=== PATIENT | male | born 1990 | race Asian ===

== ENCOUNTER 2016-09-18 02:25 | Emergency (ER) | payer OTHER ==
[2016-09-18] MEDS ORDERED: NS 0.9% 1000 ML* 1,000 ML IV ONE (03:32)
[2016-09-18] MEDS ORDERED: Morphine INJ* 4 MG/ML 1 ML SYRINGE IV ONE (03:34)
[2016-09-18] MEDS ORDERED: Ondansetron INJ* 2 MG/ML VIAL IV ONE (03:35)
[2016-09-18 04:18] LABS: Hematocrit 45 % (42-52); Hemoglobin 15.3 g/dl (14.0-18.0); Mean Corpuscular HGB Conc 34 g/dl (31-36); Mean Corpuscular Hemoglobin 29 pg (27-31); Mean Corpuscular Volume 86 fL (80-94); Mean Platelet Volume 8 um3 (7.4-10.4); Red Cell Distribution Width 13 % (10.5-15)
[2016-09-18 04:19] LABS: Add Diff/Slide Review? Slide Review Added; Comments Flag Yes
[2016-09-18 04:20] LABS: ALT 22 U/L (7-52); Alkaline Phosphatase 58 U/L (34-104); BUN/Creatinine Ratio 9.4 (8-20); Blood Urea Nitrogen 8 mg/dL (6-24); CO2 Carbon Dioxide 22 mmol/L (22-32); Chloride 96 mmol/L (101-111); EGFR African American 139.1 (>60); EGFR Non-African American 108.1 (>60); Globulin 3.7 g/dL (2-4); Glucose 108 mg/dL (70-100); Sodium 128 mmol/L (133-145); Total Protein 7.7 g/dL (6.4-8.9)
[2016-09-18 04:25] LABS: Anion Gap 10 mmol/L (2-11)
[2016-09-18] MEDS ORDERED: Lidocaine 2% EPI 1:200000 MPF* 20 ML VIAL INJ ONE (06:04)
[2016-09-18] MEDS ORDERED: Lidocaine 2% W/EPI 1:100,000* 20 ML MDV ONE (07:00)
--- NOTE | 2016-09-18 07:49 | ED ---
Issac Wray Alok, scribed for Gilberto Bonilla MD on 09/18/16 at 0359 . GI/ HPI - HPI Summary HPI Summary: 26M presents to the ED with rectal pain. Pt states that what began with rectal pruritus 6 days ago progressed into rectal pain 4 days ago. Pt states that his rectal pain is worse with wiping after BM though is not aggravated by BM themselves. Pt rectum shows erythema, swelling and redness with hard tissue. Pt states his rectal pain is worse on the right side more towards the outside of his rectum rather than inside. Pt also notes subjective fever and chills. Pt denies rectal bleeding or abd pain. Pt denies sore throat or cough. Pt denies dysuria. PMHx includes hemorrhoids 2 years ago treated with preparation H cream and no surgery. Additional PMHx includes HIV positive for which pt takes medications for as well as HTN for which the patient used to take amlodipine and has since stopped takeing. - History of Current Complaint Chief Complaint: EDRectalPain Time Seen by Provider: 09/18/16 03:02 Stated Complaint: ABD PAIN Hx Obtained From: Patient Onset/Duration: Started Days Ago, Atraumatic, Still Present, Worse Since - 4 days ago Timing: Constant, Lasting Days Severity: Moderate Current Severity: Moderate Pain Intensity: 9 Location of Pain: Rectal Associated Signs and Symptoms: Positive: Fever, Chills. Negative: Blood w/Stool , Dysuria, Cough Alleviating Factor(s): Nothing - Allergy/Home Medications Allergies/Adverse Reactions: Allergies Allergy/AdvReac Type Severity Reaction Status Date / Time No Known Allergies Allergy Verified 09/18/16 02:34 PMH/Surg Hx/FS Hx/Imm Hx Endocrine/Hematology History: Reports: Other Endocrine/Hematological Disorders - HIV positive GI History: Reports: Other GI Disorders - h/o hemorrhoids Infectious Disease History: Yes Infectious Disease History: Denies: Traveled Outside the [place] in Last 30 Days - Family History Known Family History: Positive: Hypertension - Social History Occupation: Student Alcohol Use: None Substance Use Type: Reports: None Smoking Status (MU): Never Smoked Tobacco Review of Systems Positive: Fever, Chills Negative: Sore Throat Negative: Cough Positive: Other - rectal pain. Negative: Abdominal Pain Negative: dysuria All Other Systems Reviewed And Are Negative: Yes Physical Exam - Summary Physical Exam Summary: The patient is well-nourished in no acute distress and in no acute pain. The skin is warm to touch and dry and skin color reflects adequate perfusion. HEENT: The head is normocephalic and atraumatic. The pupils are equal and reactive. The conjunctivae are clear and without drainage. Nares are patent and without drainage. Mouth reveals moist mucous membranes and the throat is without erythema and exudate. The external ears are intact. The ear canals are patent and without drainage. The tympanic membranes are intact. Neck is supple with full range of motion and non-tender. There are no carotid bruits. There is no neck vein distension. Respiratory: Chest is non-tender. Lungs are clear to auscultation and breath sounds are symmetrical and equal. Cardiovascular: Heart is regular rate and rhythm. There is no murmur or rub auscultated. There is no peripheral edema and pulses are symmetrical and equal. Abdomen: The abdomen is soft and non-tender. There are normal bowel sounds heard in all four quadrants and there is no organomegaly palpated. Rectal exam shows 6 cm by 3 cm subcutaneous perirectal abscess with erythema and fluctuant that does not extend into the rectal verge Musculoskeletal: There is no back pain noted. Extremities are non-tender with full range of motion. There is good capillary refill. There is no peripheral edema or calf tenderness elicited. Neurological: Patient is alert and oriented to person, place and time. The patient has symmetrical motor strength in all four extremities. Cranial nerves are grossly intact. Deep tendon reflexes are symmetrical and equal in all four extremities. Psychiatric: The patient has an appropriate affect and does not exhibit any anxiety or depression. Triage Information Reviewed: Yes Vital Signs On Initial Exam: Initial Vitals Temp Pulse Resp BP Pulse Ox 100.2 F 107 18 163/101 99 09/18/16 02:34 09/18/16 02:34 09/18/16 02:34 09/18/16 02:34 09/18/16 02:34 Vital Signs Reviewed: Yes - [place] Coma Scale Coma Scale Total: 15 Procedures - Incision and Drainage Site: rectal Anesthesia: Local, Lidocaine - 2% with epinephrine used 15 ml Instrument(s): Scalpel, Needle, Other - forceps. 6o cc of purulent debri expressed from abscess Packing: Gauze - iota form gauze, Other Diagnostics - Vital Signs Vital Signs Temp Pulse Resp BP Pulse Ox 09/18/16 02:34 100.2 F 107 18 163/101 99 - Laboratory Lab Results: Lab Results 09/18/16 09/18/16 09/18/16 Range/Units 03:55 03:55 03:55 WBC 14.0 H (3.5-10.8) 10^3/ul RBC 5.20 (4.0-5.4) 10^6/ul Hgb 15.3 (14.0-18.0) g/dl Hct 45 (42-52) % MCV 86 (80-94) fL MCH 29 (27-31) pg MCHC 34 (31-36) g/dl RDW 13 (10.5-15) % Plt Count 247 (150-450) 10^3/ul MPV 8 (7.4-10.4) um3 Neut % (Auto) 77.2 (38-83) % Lymph % (Auto) 8.4 L (25-47) % [place] % (Auto) 11.0 H (1-9) % Eos % (Auto) 1.1 (0-6) % Baso % (Auto) 2.3 H (0-2) % Absolute Neuts (auto) 10.8 H (1.5-7.7) 10^3/ul Absolute Lymphs (auto) 1.2 (1.0-4.8) 10^3/ul Absolute Monos (auto) 1.5 H (0-0.8) 10^3/ul Absolute Eos (auto) 0.2 (0-0.6) 10^3/ul Absolute Basos (auto) 0.3 H (0-0.2) 10^3/ul Absolute Nucleated RBC 0.05 10^3/ul Nucleated RBC % 0.3 INR (Anticoag Therapy) 1.09 (0.89-1.11) Sodium 128 L (133-145) mmol/L Potassium TNP Chloride 96 L (101-111) mmol/L Carbon Dioxide 22 (22-32) mmol/L Anion Gap 10 (2-11) mmol/L BUN 8 (6-24) mg/dL Creatinine 0.85 (0.67-1.17) mg/dL Est GFR ( Amer) 139.1 (>60) Est GFR (Non-Af Amer) 108.1 (>60) BUN/Creatinine Ratio 9.4 (8-20) Glucose 108 H (70-100) mg/dL Lactic Acid (0.5-2.0) mmol/L Calcium 9.0 (8.6-10.3) mg/dL Total Bilirubin 0.80 (0.2-1.0) mg/dL AST TNP ALT 22 (7-52) U/L Alkaline Phosphatase 58 (34-104) U/L Total Protein 7.7 (6.4-8.9) g/dL Albumin 4.0 (3.2-5.2) g/dL Globulin 3.7 (2-4) g/dL Albumin/Globulin Ratio 1.1 (1-3) 09/18/16 09/18/16 Range/Units 03:55 05:02 WBC (3.5-10.8) 10^3/ul RBC (4.0-5.4) 10^6/ul Hgb (14.0-18.0) g/dl Hct (42-52) % MCV (80-94) fL MCH (27-31) pg MCHC (31-36) g/dl RDW (10.5-15) % Plt Count (150-450) 10^3/ul MPV (7.4-10.4) um3 Neut % (Auto) (38-83) % Lymph % (Auto) (25-47) % [place] % (Auto) (1-9) % Eos % (Auto) (0-6) % Baso % (Auto) (0-2) % Absolute Neuts (auto) (1.5-7.7) 10^3/ul Absolute Lymphs (auto) (1.0-4.8) 10^3/ul Absolute Monos (auto) (0-0.8) 10^3/ul Absolute Eos (auto) (0-0.6) 10^3/ul Absolute Basos (auto) (0-0.2) 10^3/ul Absolute Nucleated RBC 10^3/ul Nucleated RBC % INR (Anticoag Therapy) (0.89-1.11) Sodium (133-145) mmol/L Potassium 3.7 Chloride (101-111) mmol/L Carbon Dioxide (22-32) mmol/L Anion Gap (2-11) mmol/L BUN (6-24) mg/dL Creatinine (0.67-1.17) mg/dL Est GFR ( Amer) (>60) Est GFR (Non-Af Amer) (>60) BUN/Creatinine Ratio (8-20) Glucose (70-100) mg/dL Lactic Acid 0.9 (0.5-2.0) mmol/L Calcium (8.6-10.3) mg/dL Total Bilirubin (0.2-1.0) mg/dL AST 12 L ALT (7-52) U/L Alkaline Phosphatase (34-104) U/L Total Protein (6.4-8.9) g/dL Albumin (3.2-5.2) g/dL Globulin (2-4) g/dL Albumin/Globulin Ratio (1-3) Result Diagrams: 09/18/16 03:55 09/18/16 05:02 Lab Statement: Any lab studies that have been ordered have been reviewed, and results considered in the medical decision making process. Re-Evaluation - Re-Evaluation First Eval Re-Evaluation Time: 07:49 Change: Improved - s/p incision and drainage GIGU Course/Dx - Course Course Of Treatment: 26 y/o male presented with rectal pain revealing a subcutaneous perirectal abscess upon inspection. I&D done. Will go home with augmentin and percocet. - Diagnoses Differential Diagnoses - Male: Other - right buttock abscess with incision and draingae Provider Diagnoses: Abscess of buttock, Status post incision and drainage Discharge - Discharge Plan Condition: Stable Disposition: HOME Patient Education Materials: Rectal Abscess (ED), Incision and Drainage (ED) Referrals: Gloria Villa DO [Primary Care Provider] - The documentation as recorded by the Issac lomeli Alok accurately reflects the service I personally performed and the decisions made by , Gilberto Bonilla MD.
[2016-09-18 08:19] VITALS: BP 124/68
--- NOTE | 2016-09-20 10:09 | ED ---
Progress - Progress Note Progress Note: Pt's wound cx reveals e. coli +2, klebsiella pneum +1, and bacteroides fragilis +3. He was started on augmentin. Sens pending. No change at this time. Re-Evaluation - Re-Evaluation First Eval Re-Evaluation Time: 07:49 Change: Improved - s/p incision and drainage Course/Dx - Course Course Of Treatment: 26 y/o male presented with rectal pain revealing a subcutaneous perirectal abscess upon inspection. I&D done. Will go home with augmentin and percocet. - Diagnoses Provider Diagnoses: Abscess of buttock, Status post incision and drainage
== END 2016-09-18 08:21 | disposition home or self-care (01) ==
LOC: ED 02:25
DX: L02.31 Cutaneous abscess of buttock (principal); I10 Essential (primary) hypertension; B20 Human immunodeficiency virus [HIV] disease
CPT/HCPCS: 36415; 80053; 82270; 83605; 85025; 85610; 87070; 87076; 87077; 87184; 87185; 87186; 87205; 96374; 96375; 99283; J2270; J2405; J2543

== ENCOUNTER 2017-07-23 10:16 | Inpatient (IN) | payer OTHER ==
[2017-07-23 10:41] LABS: ABS Basophils 0 10^3/ul (0-0.2); ABS Eosinophils 0.3 10^3/ul (0-0.6); ABS Lymphocytes 2.4 10^3/ul (1.0-4.8); ABS Monocytes 0.7 10^3/ul (0-0.8); ABS Neutrophils 4.1 10^3/ul (1.5-7.7); ABS Nucleated RBC 0 10^3/ul; Eosinophil % 3.4 % (0-6); Hematocrit 44 % (42-52); Hemoglobin 15.5 g/dl (14.0-18.0); Lymphocyte % 32.8 % (25-47); Mean Corpuscular HGB Conc 35 g/dl (31-36); Mean Corpuscular Hemoglobin 31 pg (27-31); Mean Corpuscular Volume 88 fL (80-94); Mean Platelet Volume 7.3 um3 (7.4-10.4); Nucleated Red Blood Cells % 0.1; Platelet Count 275 10^3/ul (150-450); Red Blood Count 5.04 10^6/ul (4.0-5.4); Red Cell Distribution Width 14 % (10.5-15); White Blood Count 7.4 10^3/ul (3.5-10.8)
[2017-07-23 11:02] LABS: EGFR Non-African American 109.6 (>60)
[2017-07-23 13:58] LABS: Urine Appearance Clear; Urine Blood Negative (Negative); Urine Color Straw; Urine Ketones Negative (Negative); Urine Protein Negative (Negative); Urine Specific Gravity 1.012 (1.010-1.030); Urine Urobilinogen Negative (Negative)
[2017-07-23] MEDS ORDERED: Acetaminophen TAB* 325 MG PO PRN (17:07)
[2017-07-23] MEDS ORDERED: Nicotine Inhaler* 10 MG AMP INH PRN (17:07)
[2017-07-23] MEDS ORDERED: Nicotine GUM* 2 MG PO PRN (17:07)
[2017-07-23] MEDS ORDERED: Al Hydrox/Mg Hydrox/Simet LIQ* 30 ML UDC PO PRN (17:07)
[2017-07-23] MEDS ORDERED: hydrOXYzine HCL TAB* 50 MG PO PRN (17:15)
[2017-07-23] MEDS ORDERED: Mouth Piece, Nicotine* 1 EACH CARTRIDGE INH ONE (19:00)
[2017-07-23] MEDS: traZODone TAB* 100 MG PO SCH ×3 (20:14→22:02)
[2017-07-23] MEDS: Hydrochlorothiazide TAB* 25 MG PO ONE ×2 (20:14→20:49)
[2017-07-24] MEDS: Nicotine PATCH 21 MG/24 HR* PATCH TRANSDERM SCH (10:01)
[2017-07-24] MEDS: Losartan TAB* 25 MG PO SCH (10:01)
[2017-07-24] MEDS: Citalopram TAB* 40 MG PO SCH (10:02)
[2017-07-24] MEDS: Vitamin THERAPEUTIC TAB PO SCH (10:03)
[2017-07-24] MEDS: amLODIPine TAB* 5 MG PO SCH (10:03)
[2017-07-24] MEDS: TENOFOVIR PO SCH (10:04)
[2017-07-24] MEDS: [UNRECOGNIZED DRUG - OTHER] PO SCH (10:04)
[2017-07-24] MEDS: EMTRICITABINE PO SCH (10:04)
[2017-07-24] MEDS: DOLUTEGRAVIR 50 MG PO SCH (10:05)
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
[2017-07-24] MEDS: Hydrochlorothiazide TAB* 25 MG PO SCH (13:25)
[2017-07-24] MEDS: Nicotine Patch Removal NOTE PATCH OFF SCH ×2 (21:38→21:45)
[2017-07-24] MEDS: traZODone TAB* 100 MG PO SCH (21:39)
--- NOTE | 2017-07-25 09:50 | ED ---
Manisha Wray Elizabeth, scribed for Vitor Abel MD on 07/23/17 at 1031 . Psychiatric Complaint - HPI Summary HPI Summary: This patient is a 26 year old M presenting to [facility] with a chief complaint of depression since 1 day ago. Symptoms aggravated by nothing. Symptoms alleviated by nothing. Patient reports thoughts of self-harm and insomnia. The patient reports that he has been seeing a psychiatrist who recommended that he be hospitalized. The patient has a hx of suicide attempts, depression, anxiety, HTN. The patient reports that he has been taking Lexapro, mood stabilizers, and medication for HIV. The patient reports that he received an x-ray of his right wrist 1 day ago after he punched a wall, revealing no fractures to the extremity. - History Of Current Complaint Time Seen by Provider: 07/23/17 10:19 Hx Obtained From: Patient Onset/Duration: Gradual Onset, Lasting Days - 1 day ago, Still Present Timing: Constant Severity Initially: Mild Severity Currently: Mild Character: Depressed, Anxious Aggravating Factor(s): Nothing Alleviating Factor(s): Nothing Associated Signs And Symptoms: Positive: Sleep Disturbance - insomnia Related History: Positive For: Prior Psychiatric Issues - depression, anxiety, previous suicide attempts Has Suicidal: Reports: Thoughts, Has Prior Attempt(s) - Allergies/Home Medications Allergies/Adverse Reactions: Allergies Allergy/AdvReac Type Severity Reaction Status Date / Time No Known Allergies Allergy Verified 09/18/16 02:34 Home Medications: Home Medications Dolutegravir (NF) [Tivicay (NF)] 50 mg PO DAILY 07/23/17 [History Confirmed ] Doxepin (NF) [Silenor (NF)] 6 mg PO DAILY 07/23/17 [History Confirmed 07/23/17] Emtricitabine/Tenofovir (NF) [Descovy (Nf)] 1 tab PO DAILY 07/23/17 [History Confirmed 07/23/17] Escitalopram (NF) [Lexapro 20 mg (NF)] 20 mg PO DAILY 07/23/17 [History Confirmed 07/23/17] Hydrochlorothiazide TAB* [Hydrodiuril TAB*] 25 mg PO DAILY 07/23/17 [History Confirmed 07/23/17] Losartan TAB* [Cozaar TAB*] 100 mg PO DAILY 07/23/17 [History Confirmed 07/23/17 ] amLODIPine TAB* [Norvasc 5 mg TAB*] 10 mg PO DAILY 07/23/17 [History Confirmed 07/23/17] hydrOXYzine HCL TAB* [Atarax 10 MG TAB*] 10 mg PO BID PRN 07/23/17 [History Confirmed 07/23/17] traZODone TAB* [Desyrel TAB*] 50 mg PO BEDTIME 07/23/17 [History Confirmed 07/23] PMH/Surg Hx/FS Hx/Imm Hx Endocrine/Hematology History: Reports: Other Endocrine/Hematological Disorders - HIV positive GI History: Reports: Other GI Disorders - h/o hemorrhoids Psychiatric History: Reports: Hx Anxiety, Hx Depression, Hx Suicide Attempt - Surgical History Surgery Procedure, Year, and Place: absess infection surgery - Family History Known Family History: Positive: Hypertension - Social History Alcohol Use: None Substance Use Type: Reports: None Smoking Status (MU): Never Smoked Tobacco Review of Systems Negative: Fever Negative: Epistaxis Negative: Abdominal Pain Positive: Edema - swelling to the right wrist Positive: Bruising - to the right wrist All Other Systems Reviewed And Are Negative: Yes Physical Exam - Summary Physical Exam Summary: VITAL SIGNS: Reviewed. GENERAL: Patient is a well-developed and nourished MALE who is lying comfortable in the stretcher. Patient is not in any acute respiratory distress. HEAD AND FACE: No signs of trauma. No ecchymosis, hematomas or skull depressions. No sinus tenderness. EYES: PERRLA, EOMI x 2, No injected conjunctiva, no nystagmus. EARS: Hearing grossly intact. Ear canals and tympanic membranes are within normal limits. MOUTH: Oropharynx within normal limits. NECK: Supple, trachea is midline, no adenopathy, no JVD, no carotid bruit, no c- spine tenderness, neck with full ROM. CHEST: Symmetric, no tenderness at palpation LUNGS: Clear to auscultation bilaterally. No wheezing or crackles. CVS: Regular rate and rhythm, S1 and S2 present, no murmurs or gallops appreciated. ABDOMEN: Soft, non-tender. No signs of distention. No rebound no guarding, and no masses palpated. Bowel sounds are normal. EXTREMITIES: FROM in all major joints, no cyanosis or clubbing. Swelling and hematoma in the right wrist with equal pulses and good sensation. NEURO: Alert and oriented x 3. No acute neurological deficits. Speech is normal and follows commands. SKIN: Dry and warm PSYCH: Depressed, quiet, and denies any suicidal thoughts or plan. No homicidal thoughts or plan. No signs of psychosis or pressure speech. No tangential speech. Triage Information Reviewed: Yes Vital Signs On Initial Exam: Initial Vitals Temp Pulse Resp BP Pulse Ox 97.9 F 70 16 131/98 97 07/23/17 10:38 07/23/17 10:38 07/23/17 10:38 07/23/17 10:38 07/23/17 10:38 Vital Signs Reviewed: Yes Diagnostics - Vital Signs Vital Signs Temp Pulse Resp BP Pulse Ox 07/23/17 10:38 97.9 F 70 16 131/98 97 - Laboratory Lab Results: Lab Results 07/23/17 07/23/17 Range/Units 10:30 10:30 WBC 7.4 (3.5-10.8) 10^3/ul RBC 5.04 (4.0-5.4) 10^6/ul Hgb 15.5 (14.0-18.0) g/dl Hct 44 (42-52) % MCV 88 (80-94) fL MCH 31 (27-31) pg MCHC 35 (31-36) g/dl RDW 14 (10.5-15) % Plt Count 275 (150-450) 10^3/ul MPV 7.3 L (7.4-10.4) um3 Neut % (Auto) 54.6 (38-83) % Lymph % (Auto) 32.8 (25-47) % [place] % (Auto) 8.8 H (0-7) % Eos % (Auto) 3.4 (0-6) % Baso % (Auto) 0.4 (0-2) % Absolute Neuts (auto) 4.1 (1.5-7.7) 10^3/ul Absolute Lymphs (auto) 2.4 (1.0-4.8) 10^3/ul Absolute Monos (auto) 0.7 (0-0.8) 10^3/ul Absolute Eos (auto) 0.3 (0-0.6) 10^3/ul Absolute Basos (auto) 0 (0-0.2) 10^3/ul Absolute Nucleated RBC 0 10^3/ul Nucleated RBC % 0.1 Sodium 137 L (139-145) mmol/L Potassium 3.6 (3.5-5.0) mmol/L Chloride 101 (101-111) mmol/L Carbon Dioxide 28 (22-32) mmol/L Anion Gap 8 (2-11) mmol/L BUN 17 (6-24) mg/dL Creatinine 0.84 (0.67-1.17) mg/dL Est GFR ( Amer) 141.0 (>60) Est GFR (Non-Af Amer) 109.6 (>60) BUN/Creatinine Ratio 20.2 H (8-20) Glucose 102 H (70-100) mg/dL Calcium 8.9 (8.6-10.3) mg/dL Total Bilirubin 0.60 (0.2-1.0) mg/dL AST 29 (13-39) U/L ALT 68 H (7-52) U/L Alkaline Phosphatase 53 (34-104) U/L Total Protein 7.0 (6.4-8.9) g/dL Albumin 4.3 (3.2-5.2) g/dL Globulin 2.7 (2-4) g/dL Albumin/Globulin Ratio 1.6 (1-3) TSH 1.16 (0.34-5.60) mcIU/mL Salicylates < 2.50 (<30) mg/dL Acetaminophen < 15 mcg/mL Serum Alcohol < 10 (<10) mg/dL Result Diagrams: 07/23/17 10:30 07/23/17 10:30 Lab Statement: Any lab studies that have been ordered have been reviewed, and results considered in the medical decision making process. Course/Dx - Course Assessment/Plan: This patient is a 26-year-old male who presents to the emergency room with a chief complaint of having suicidal thoughts. Patient has past medical history for depression for the last couple days. The patient is having thoughts that he wants to kill himself. He has an specific plan taking pills. Blood work without any significant abnormality. The patient is medically clear. He is awaiting for mental health evaluation. Dr. Byrd fibrillated the patient and he recommends the patient be admitted to the mental health floor. - Differential Dx/Clinical Impression Differential Diagnosis/HQI/PQRI: Positive: Anxiety, Depression, Suicidal Ideation Provider Diagnosis: Depression Discharge - Sign-Out/Discharge Documenting (check all that apply): Discharge/Admit/Transfer - Discharge Plan Condition: Stable Disposition: PSYCHIATRIC FACILITY-[facility] [place] - Billing Disposition and Condition Condition: STABLE Disposition: PSY-[facility] [place] The documentation as recorded by the Manisha lomeli Elizabeth accurately reflects the service I personally performed and the decisions made by , Vitor Abel MD.
[2017-07-25] MEDS: Citalopram TAB* 40 MG PO SCH (09:58)
[2017-07-25] MEDS: amLODIPine TAB* 5 MG PO SCH (09:58)
[2017-07-25] MEDS: Nicotine PATCH 21 MG/24 HR* PATCH TRANSDERM SCH (09:58)
[2017-07-25] MEDS: Hydrochlorothiazide TAB* 25 MG PO SCH (09:59)
[2017-07-25] MEDS: Losartan TAB* 25 MG PO SCH (09:59)
[2017-07-25] MEDS: Vitamin THERAPEUTIC TAB PO SCH (10:00)
[2017-07-25] MEDS: EMTRICITABINE PO SCH (10:00)
[2017-07-25] MEDS: [UNRECOGNIZED DRUG - OTHER] PO SCH (10:00)
[2017-07-25] MEDS: TENOFOVIR PO SCH (10:00)
[2017-07-25] MEDS: DOLUTEGRAVIR 50 MG PO SCH (10:01)
[2017-07-25] MEDS: traZODone TAB* 100 MG PO SCH (21:28)
[2017-07-25] MEDS: Nicotine Patch Removal NOTE PATCH OFF SCH (21:29)
[2017-07-26] MEDS: LORazepam TAB(*) 1 MG PO PRN ×2 (00:12→23:30)
[2017-07-26] MEDS: Losartan TAB* 25 MG PO SCH (09:48)
[2017-07-26] MEDS: Vitamin THERAPEUTIC TAB PO SCH (09:49)
[2017-07-26] MEDS: Citalopram TAB* 40 MG PO SCH (09:49)
[2017-07-26] MEDS: amLODIPine TAB* 5 MG PO SCH (09:49)
[2017-07-26] MEDS: Hydrochlorothiazide TAB* 25 MG PO SCH (09:49)
[2017-07-26] MEDS: TENOFOVIR PO SCH (09:50)
[2017-07-26] MEDS: [UNRECOGNIZED DRUG - OTHER] PO SCH (09:50)
[2017-07-26] MEDS: EMTRICITABINE PO SCH (09:50)
[2017-07-26] MEDS: Nicotine PATCH 21 MG/24 HR* PATCH TRANSDERM SCH (09:53)
[2017-07-26] MEDS: DOLUTEGRAVIR 50 MG PO SCH (09:53)
--- NOTE | 2017-07-26 15:57 | PN ---
Subjective - Subjective Date of Service: 07/26/17 Subjective: Cole reports mood as "happy and stable," he denies suicidal ideation or urges for sib and he contracts for safety. He reports still having some difficulties with getting restful sleep despite prescribed medications. Per staff, he is visible in the milieu and adherent to routines. Objective - Appearance Appearance: Healthy Appearing Dysmorphic Features: No Hygiene: Normal Grooming: Well Kept - Behavior Psychomotor Activities: Normal Exhibits Abnormal Movement: No - Attitude and Relatedness Attitude and Relatedness: Cooperative Eye Contact: Fair - Speech Quality: Unpressured Latencies: Normal Quantity: Appropriate - Mood Patient's Decription of Mood: "Good" - Affect Observed Affect: Fair Affect Consistent with: Euthymia - Thought Process Patient's Thought Process: Coherent, Goal Directed Thought Content: No Passive Wish, No Suicidal Planning, No Homicidal Ideation, No Paranoid Ideation - Sensorium Experiencing Hallucinations: No, Sensorium is Clear - Level of Consciousness Level of Consciousness: Alert Orientation: Yes Intact - Impulse Control Impulse Control: Intact - Insight and Judgement Insight and Judgement: Poor - Group Participation Particating in Group Activities: Yes - Medication Management Medication Management Adherence: Yes Assessment - Assessment Inpatient DSM-V Dx: F33.1 Clinical Impression: Stabilizing in this structured setting with improvement in mood, absence of SI. He is tolerating prescribed meds Plan - Plan Treatment Plan: Name: COLE KNIGHT Birthdate: 1990 [id number] Continued Medication Management: Continue Outpt Medication Medications: Current Medications Acetaminophen (Tylenol Tab*) 650 mg PO Q4H PRN PRN Reason: for pain; or Temp >101 F Al Hydrox/Mg Hydrox/Simethicone (Maalox Plus*) 30 ml PO Q4H PRN PRN Reason: INDIGESTION Amlodipine Besylate (Norvasc Tab*) 10 mg PO DAILY [facility] Last Admin: 07/26/17 09:49 Dose: 10 mg Citalopram Hydrobromide (Celexa Tab*) 40 mg PO DAILY [facility] Last Admin: 07/26/17 09:49 Dose: 40 mg Dolutegravir Sodium (Tivicay (Nf)) 50 mg PO DAILY [facility] Last Admin: 07/26/17 09:53 Dose: 50 mg Hydrochlorothiazide (Hydrodiuril Tab*) 25 mg PO DAILY [facility] Last Admin: 07/26/17 09:49 Dose: 25 mg Hydroxyzine HCl (Atarax Tab*) 50 mg PO Q4H PRN PRN Reason: ANXIETY Last Admin: 07/23/17 20:14 Dose: 50 mg Lorazepam (Ativan Tab(*)) 1 mg PO Q6H PRN PRN Reason: agitation/insomnia Last Admin: 07/26/17 00:12 Dose: 1 mg Losartan Potassium (Cozaar Tab*) 100 mg PO DAILY [facility] Last Admin: 07/26/17 09:48 Dose: 100 mg Multivitamins (Theragran Tab*) 1 tab PO DAILY [facility] Last Admin: 07/26/17 09:49 Dose: 1 tab Nicotine (Nicotine Inhaler*) 10 mg INH Q2H PRN PRN Reason: CRAVING Nicotine (Nicotine Patch 21 Mg/24 Hr*) 1 patch TRANSDERM DAILY@0800 [facility] Last Admin: 07/26/17 09:53 Dose: Not Given Nicotine Polacrilex (Nicotine Gum*) 2 mg PO Q2H PRN PRN Reason: CRAVING Pto: Emtricitabine/Tenofovir/Alafenamide 1 dose PO DAILY [facility] Last Admin: 07/26/17 09:50 Dose: 1 dose Pharmacy Profile Note (Nicotine Patch Removal Note*) 1 note PATCH OFF 2100 [facility] Last Admin: 07/25/17 21:29 Dose: Not Given Trazodone HCl (Desyrel Tab*) 100 mg PO BEDTIME [facility] Last Admin: 07/25/17 21:28 Dose: 100 mg - Discharge Plan Discharge Plan: Outpatient Follow Up Outpatient Program: [place]
[2017-07-26] MEDS: Nicotine Patch Removal NOTE PATCH OFF SCH (21:47)
[2017-07-26] MEDS: traZODone TAB* 100 MG PO SCH (21:47)
[2017-07-27] MEDS: Nicotine PATCH 21 MG/24 HR* PATCH TRANSDERM SCH (09:06)
[2017-07-27] MEDS: Vitamin THERAPEUTIC TAB PO SCH (09:06)
[2017-07-27] MEDS: Hydrochlorothiazide TAB* 25 MG PO SCH (09:06)
[2017-07-27] MEDS: Citalopram TAB* 40 MG PO SCH (09:06)
[2017-07-27] MEDS: amLODIPine TAB* 5 MG PO SCH (09:07)
[2017-07-27] MEDS: Losartan TAB* 25 MG PO SCH (09:07)
[2017-07-27] MEDS: DOLUTEGRAVIR 50 MG PO SCH (09:08)
[2017-07-27] MEDS: [UNRECOGNIZED DRUG - OTHER] PO SCH (09:09)
[2017-07-27] MEDS: EMTRICITABINE PO SCH (09:09)
[2017-07-27] MEDS: TENOFOVIR PO SCH (09:09)
--- NOTE | 2017-07-27 11:50 | PN ---
[facility]: Group Therapy Note - Service Type Service Type: 54507 Group Psychotherapy - Cognitive Behavioral Group Therapy ( CBT):Patient was attentive and participatory in CBT programming this morning, and remained in good behavioral control. Patient expressed positive insights regarding relevant treatment interventions and goals.
--- NOTE | 2017-07-27 13:37 | PN ---
Subjective - Subjective Date of Service: 07/27/17 Service Type: 85067 Hosp care 25 min moderate complexity Subjective: Patient seen by commercial underwriter in coverage for Dr Byrd's absence. Patient is expressing desire to be discharged in order to solidify plans for academic and immigration status concerns. Patient tearful and visibly upset, talking to many peers and staff members about his concerns. He states that he was told he will not be able to leave today. Armor Reconnaissance Specialist and Asuncion Martin LMSW met with patient to discuss concern safety profile and hesitancy to discharge patient. Patient presented as anxious , irritable at times. He often interrupted and did not give commercial underwriter or SW chance to explain rationale. Patient expressed improved mood and ability to cope as demonstrated by "crying" and that he was not allowed to do so growing up. He states that playing games and recreational activities over the weekend was beneficial as he had not done so before. Objective - Appearance Appearance: Well Developed/Nourished Dysmorphic Features: Yes Hygiene: Normal Grooming: Fairly Well Kept - Behavior Psychomotor Activities: Normal Exhibits Abnormal Movement: No - Attitude and Relatedness Attitude and Relatedness: Superficially Cooperative Eye Contact: Fair - Speech Quality: Pressured Latencies: Normal Quantity: Copious - Mood Patient's Decription of Mood: "Fine" - Affect Observed Affect: Tearful Affect Consistent with: Dysphoria - Thought Process Patient's Thought Process: Goal Directed, Circumstantial Thought Content: No Passive Wish, No Suicidal Planning, No Homicidal Ideation, No Paranoid Ideation - Sensorium Experiencing Hallucinations: No, Sensorium is Clear Type of Hallucinations: Visual: No, Auditory: No, Command: No - Level of Consciousness Level of Consciousness: Alert Orientation: Yes Intact, Yes Orientated to Time, Yes Orientated to Place, Yes Orientated to Person - Impulse Control Impulse Control: Tenuous - Insight and Judgement Insight and Judgement: Poor - Group Participation Particating in Group Activities: Yes - Medication Management Medication Management Adherence: Yes Assessment - Assessment Merits Inpatient Hospitalization: For Immediate Safety, For Stabilization, For Discharge Planning, Pending Safe DC Plan Inpatient DSM-V Dx: F33.1 Clinical Impression: 26yo [place] male who presented to ED from therapist's office due to decreased functioning, suicidal ideation and complex psychosocial stressors. He merits hospitalization for immediate safety and safe discharge planning. Plan - Plan Treatment Plan: Name: SCOT KNIGHT Birthdate: 1990 [id number] continue acute intensive psychiatric treatment. continue current medications. discharge planning to include [place] outpatient providers, crisis management and academic advisors. Medications: Current Medications Acetaminophen (Tylenol Tab*) 650 mg PO Q4H PRN PRN Reason: for pain; or Temp >101 F Al Hydrox/Mg Hydrox/Simethicone (Maalox Plus*) 30 ml PO Q4H PRN PRN Reason: INDIGESTION Amlodipine Besylate (Norvasc Tab*) 10 mg PO DAILY [facility] Last Admin: 07/27/17 09:07 Dose: 10 mg Citalopram Hydrobromide (Celexa Tab*) 40 mg PO DAILY [facility] Last Admin: 07/27/17 09:06 Dose: 40 mg Dolutegravir Sodium (Tivicay (Nf)) 50 mg PO DAILY [facility] Last Admin: 07/27/17 09:08 Dose: 50 mg Hydrochlorothiazide (Hydrodiuril Tab*) 25 mg PO DAILY [facility] Last Admin: 07/27/17 09:06 Dose: 25 mg Hydroxyzine HCl (Atarax Tab*) 50 mg PO Q4H PRN PRN Reason: ANXIETY Last Admin: 07/23/17 20:14 Dose: 50 mg Lorazepam (Ativan Tab(*)) 1 mg PO Q6H PRN PRN Reason: agitation/insomnia Last Admin: 07/26/17 23:30 Dose: 1 mg Losartan Potassium (Cozaar Tab*) 100 mg PO DAILY [facility] Last Admin: 07/27/17 09:07 Dose: 100 mg Multivitamins (Theragran Tab*) 1 tab PO DAILY [facility] Last Admin: 07/27/17 09:06 Dose: 1 tab Nicotine (Nicotine Inhaler*) 10 mg INH Q2H PRN PRN Reason: CRAVING Nicotine (Nicotine Patch 21 Mg/24 Hr*) 1 patch TRANSDERM DAILY@0800 [facility] Last Admin: 07/27/17 09:06 Dose: Not Given Nicotine Polacrilex (Nicotine Gum*) 2 mg PO Q2H PRN PRN Reason: CRAVING Pto: Emtricitabine/Tenofovir/Alafenamide 1 dose PO DAILY [facility] Last Admin: 07/27/17 09:09 Dose: 1 dose Pharmacy Profile Note (Nicotine Patch Removal Note*) 1 note PATCH OFF 2100 [facility] Last Admin: 07/26/17 21:47 Dose: Not Given Trazodone HCl (Desyrel Tab*) 100 mg PO BEDTIME [facility] Last Admin: 07/26/17 21:47 Dose: 100 mg - Discharge Plan Discharge Plan: Outpatient Follow Up Outpatient Program: Counseling[facility] Services at [place]
[2017-07-27] MEDS: traZODone TAB* 100 MG PO SCH (20:41)
[2017-07-27] MEDS: Nicotine Patch Removal NOTE PATCH OFF SCH (23:11)
[2017-07-28] MEDS: LORazepam TAB(*) 1 MG PO PRN (00:10)
[2017-07-28] MEDS: EMTRICITABINE PO SCH (09:19)
[2017-07-28] MEDS: [UNRECOGNIZED DRUG - OTHER] PO SCH (09:19)
[2017-07-28] MEDS: DOLUTEGRAVIR 50 MG PO SCH (09:19)
[2017-07-28] MEDS: TENOFOVIR PO SCH (09:19)
[2017-07-28] MEDS: Hydrochlorothiazide TAB* 25 MG PO SCH (09:20)
[2017-07-28] MEDS: Losartan TAB* 25 MG PO SCH (09:20)
[2017-07-28] MEDS: amLODIPine TAB* 5 MG PO SCH (09:21)
[2017-07-28] MEDS: Citalopram TAB* 40 MG PO SCH (09:22)
[2017-07-28] MEDS: Vitamin THERAPEUTIC TAB PO SCH (09:22)
[2017-07-28] MEDS: Nicotine PATCH 21 MG/24 HR* PATCH TRANSDERM SCH (09:22)
--- NOTE | 2017-07-28 12:40 | PN ---
Subjective - Subjective Subjective: Psychiatric Attending Progress Note: weekend notes reviewed. patient had difficulty falling asleep. room mates snoring loudly. Patient unable to sleep with trazodone alone but prn ativan 1 mg was effective and he subsequently slept 7 to 8 hours Other concerns raised at team meeting today include: concern with regard to patient's safety. patient's room mote revealed to staff yesterday that Cole had approached him and asked about procuring street drugs so he could take an overdose to end his life. Nurses notes over weekend reveal that patient did not verbalize feeling depressed, suicidal or excessively anxious. He was in good behavioral control all weekend. There is no mention that patient was crying, agitated, or in distress. Patient had multiple friends visit him this weekend. He reports five separate friends from his PhD program at [employer] came to visit him. I spoke with Sven Hoff Student Life for Graduate students at [employer] in order to collect and share information which will help us to solidify a discharge plan which will support Cole going forward and optimize a successful adjustment and outcome. She informed me that she was the liason helping cole to complete the necessary requirements so that he can fullfill his masters degree. In this regard, she shared that his academic requirements are complete and that all that is needed is completion of paperwork and a meeting with staff in his department of study. Sven Álvarez confirmed that Cole's being asked to terminate with phD program had nothing to do with any type of behavioral or emotional issues. It was strictly related to the quality of his 3rd year dissertation paper work. It was not up to standards and professor therefore terminated phd track and converted it into masters degree. Sven Álvarez has been in touch with Mar Chavez (Cole's therapist at [facility]). upon receiving masters degree in mid september Cole would lose his student status 30 days later and [facility]. Given Cole's current vulnerable mental status, Sven shared that he would be eligible to apply for a leave of absence from [place] which would permit Cole to deferr sub mission of academic paperwork leave of absence is up to 4 years but Cole would only be eligible for a one year YAS. 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 He applied for this position one month ago. 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 Interview with Cole X 45 minutes I met with Cole today. he was anxious to meet with me but was not intrusive or inappropriate when I came onto the unit. He did indicate he was anxious to to chat but waited patiently. we discussed anumber of issues. He shared with me that after learning of HIV status he became depressed but nonethe less continued t work on his paperwork. He believes that the quality of his writing may have been effected by his depression. He procrastinated and did much of the writing last minute. AFter learning on March 13 2017 that he was not going to be permitted to complete PhD, he began having probelms sleeping, HIs energy was low, he ruminated about his future and began to feel hopeless. At that time he did not confide in his parents. he did however, call his maternal Aunt in [place] who is a psychiatrist. She would skype with im on occasion and encouragedh im to take lexapro which had first been prescribed in February by Dr. Preciado. she also recommended that he see a counselor regularly. Aunt told parents about his [facility] and his depression. He did not share HIV status with aunt. Patient had thoughts at this time of overdosing on steet drugs but never made actual attempt. today, Cole presents as hyperverbal. he has difficulty sustaining his attention during our session. he interrupts often. He has an agenda which is related to seeking out employment which I believe he is frantic to solidify as he has great fear of returning to [place] given the stigma and isolation he would face as an HIV + man returning from the [place]. 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 As I am unsure of the veracity of this statement (as he never mentioned it previously) I request he show me the letter. 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 Subsequently Cole begins talking about a program at [employer] [employer] which starts this week. He goes on a tangent explaining that he requested info about a masters program at [employer] which if completed suc cessfully leads to potential pathway to continue on to PhD program. I shared with Cole why it was not in his best interests from a mental health stand point to be thinking about starting a new degree program at this time. MSE: hyperverbal likely secondary to anxiety mood: anxious. dysphoric affect: incongruent. smiles TP: tangential at times but coherent. Has difficulty staying on task. very easily distracted TC: denies hallucinations, fearful of people finding out about his HIV status. fearful that his imigration medical technologist generalist will find out he is in hospital. patient's anxiety and worry over potential deportation is real and not imagined or delusional. cogntive: alert and fully oriented. impression: adjustment disorder with depression and anxiety unspecified depressive disorder rule out ADHD combined type Plan: start Klonopin 0.25 mg BId d/c ativan prn start Temazepam 30 mg po QHS continue Trazdone 100 mg qhs lexapro 10 mg qhs consider adding low dose abilify 2 mg daily for augmentation of lexapro Assessment - Assessment Inpatient DSM-V Dx: F33.1 Plan - Plan Treatment Plan: Name: COLE KNIGHT Birthdate: 1990 [id number] Medications: Current Medications Acetaminophen (Tylenol Tab*) 650 mg PO Q4H PRN PRN Reason: for pain; or Temp >101 F Al Hydrox/Mg Hydrox/Simethicone (Maalox Plus*) 30 ml PO Q4H PRN PRN Reason: INDIGESTION Amlodipine Besylate (Norvasc Tab*) 10 mg PO DAILY [facility] Last Admin: 07/28/17 09:21 Dose: 10 mg Citalopram Hydrobromide (Celexa Tab*) 40 mg PO DAILY [facility] Last Admin: 07/28/17 09:22 Dose: 40 mg Dolutegravir Sodium (Tivicay (Nf)) 50 mg PO DAILY [facility] Last Admin: 07/28/17 09:19 Dose: 50 mg Hydrochlorothiazide (Hydrodiuril Tab*) 25 mg PO DAILY [facility] Last Admin: 07/28/17 09:20 Dose: 25 mg Hydroxyzine HCl (Atarax Tab*) 50 mg PO Q4H PRN PRN Reason: ANXIETY Last Admin: 07/23/17 20:14 Dose: 50 mg Lorazepam (Ativan Tab(*)) 1 mg PO Q6H PRN PRN Reason: agitation/insomnia Last Admin: 07/28/17 00:10 Dose: 1 mg Losartan Potassium (Cozaar Tab*) 100 mg PO DAILY [facility] Last Admin: 07/28/17 09:20 Dose: 100 mg Multivitamins (Theragran Tab*) 1 tab PO DAILY [facility] Last Admin: 07/28/17 09:22 Dose: 1 tab Nicotine (Nicotine Inhaler*) 10 mg INH Q2H PRN PRN Reason: CRAVING Nicotine (Nicotine Patch 21 Mg/24 Hr*) 1 patch TRANSDERM DAILY@0800 [facility] Last Admin: 07/28/17 09:22 Dose: Not Given Nicotine Polacrilex (Nicotine Gum*) 2 mg PO Q2H PRN PRN Reason: CRAVING Pto: Emtricitabine/Tenofovir/Alafenamide 1 dose PO DAILY [facility] Last Admin: 07/28/17 09:19 Dose: 1 dose Pharmacy Profile Note (Nicotine Patch Removal Note*) 1 note PATCH OFF 2100 [facility] Last Admin: 07/27/17 23:11 Dose: Not Given Trazodone HCl (Desyrel Tab*) 100 mg PO BEDTIME [facility] Last Admin: 07/27/17 20:41 Dose: 100 mg
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
[2017-07-28] MEDS: clonazePAM TAB(*) 0.5 MG PO SCH (15:28)
[2017-07-28] MEDS: Temazepam CAP* 15 MG PO SCH (22:14)
[2017-07-28] MEDS: traZODone TAB* 100 MG PO SCH (22:15)
[2017-07-28] MEDS: Nicotine Patch Removal NOTE PATCH OFF SCH (22:52)
[2017-07-29] MEDS: Hydrochlorothiazide TAB* 25 MG PO SCH (09:26)
[2017-07-29] MEDS: Losartan TAB* 25 MG PO SCH (09:26)
[2017-07-29] MEDS: Citalopram TAB* 40 MG PO SCH (09:26)
[2017-07-29] MEDS: Vitamin THERAPEUTIC TAB PO SCH (09:26)
[2017-07-29] MEDS: amLODIPine TAB* 5 MG PO SCH (09:26)
[2017-07-29] MEDS: Nicotine PATCH 21 MG/24 HR* PATCH TRANSDERM SCH (09:26)
[2017-07-29] MEDS: clonazePAM TAB(*) 0.5 MG PO SCH ×2 (09:28→16:56)
[2017-07-29] MEDS: DOLUTEGRAVIR 50 MG PO SCH (09:29)
[2017-07-29] MEDS: TENOFOVIR PO SCH (09:30)
[2017-07-29] MEDS: EMTRICITABINE PO SCH (09:30)
[2017-07-29] MEDS: [UNRECOGNIZED DRUG - OTHER] PO SCH (09:30)
--- NOTE | 2017-07-29 14:08 | PN ---
Subjective - Subjective Date of Service: 07/29/17 Subjective: Psychiatric Attending Progress Note: JANIE Martin and myself met with Cole x 45 min session today to reassess his mental status in light of progress note from yesterday which mentions SI and depression but also to discuss discharge planning. Cole has had several doses of klonopin 0.25 mg BID and although he is having some daytime somnolence, there is an observable improvement in his mental status. symptoms of anxiety including restlessness, distractibility, excessive talking, nervous laughter and even his incongruent affect (excessive smiling) are all diminsihed in severity. Cole is able to focus and sustain his attention better today. His speech is slower. He is stopping to consider what he wants to say (as he does have some difficulty expressing his thoughts in Bel[place]ian). His affect is much more appropriate today. His nervous smiling is much less frequent. issue of presence or absence of SI discussed first. Cole was frustrated that mention was made about him being suicidal last night. He explained very calmly and in a non defensive manner that, the discussion last night was focused on the past and he was explaining how he felt on admission. He consistently maintains that he has not felt acutely suicidal since hospital day # 2 when he awoke after getting his first good night sleep in weeks. In support of this is patient's consistent future oriented talk during the past week which includes his intention to meet with various supports at [facility] upon discharge who are helping him in multiple areas. These include his medical providers, his crisis counselor, his therapist, a locum tenens psychiatrist, [employer] which is a campus organization which helps him to extend his visa, his friends who have been visiting him at the hospital. He also has a recent employment offer from [employer] which he has been talking about following up with as it is one of the many pathways through which he can extend his visa so he can remain in [place] longer. Cole shared that he spoke with his mother last night by phone and shared admission to hospital. He felt very supported by mother who was happy that he had come to hospital for help and described him as "brave" which made Cole feel good. Mother is caring for Cole's ill grandmother at present time but offered to come to [place] if he needed her to. In the same vein, maternal Aunt who is psychiatrist back in [place], told patient that she would be coming to [place] for a medical conference and would be willing to fly to [place] to see him. furthermore, patient has many friends who have been visiting him here. Patient signed release of information for social worker school to be able to talk to [facility] staff who are working with Cole. We shared with Cole that we were going to defer his discahrge until tomorrow in order to coordinate treatment efforts amongst multiple providers/couselors who will be assisting and alcazar pporting Cole across multiple domains when he is discharge. He was disappointed but was able to manage his disappointment through verbal means and without emotional distress. Impression: Adjustment Disorder with disturbance of anxiety and depressed mood unspecified anxiety disorder suicidal ideation has remitted Plan: Likely discharge for tomorrow with follow up at [facility] for therapy and medication management numerous couselors are assiting patient with visa extension continue medication regimen unchanged. stacey is helping with anxiety
[2017-07-29] MEDS: traZODone TAB* 100 MG PO SCH (22:06)
[2017-07-29] MEDS: Temazepam CAP* 15 MG PO SCH (22:06)
[2017-07-29] MEDS: Nicotine Patch Removal NOTE PATCH OFF SCH (22:07)
[2017-07-30 07:44] VITALS: BP 147/95
[2017-07-30] MEDS: EMTRICITABINE PO SCH (09:24)
[2017-07-30] MEDS: TENOFOVIR PO SCH (09:24)
[2017-07-30] MEDS: DOLUTEGRAVIR 50 MG PO SCH (09:24)
[2017-07-30] MEDS: [UNRECOGNIZED DRUG - OTHER] PO SCH (09:24)
[2017-07-30] MEDS: clonazePAM TAB(*) 0.5 MG PO SCH (09:25)
[2017-07-30] MEDS: amLODIPine TAB* 5 MG PO SCH (09:25)
[2017-07-30] MEDS: Hydrochlorothiazide TAB* 25 MG PO SCH (09:25)
[2017-07-30] MEDS: Citalopram TAB* 40 MG PO SCH (09:25)
[2017-07-30] MEDS: Losartan TAB* 25 MG PO SCH (09:26)
[2017-07-30] MEDS: Vitamin THERAPEUTIC TAB PO SCH (09:27)
[2017-07-30] MEDS: Nicotine PATCH 21 MG/24 HR* PATCH TRANSDERM SCH (09:30)
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
== END 2017-07-30 14:30 | disposition home or self-care (01) | DRG 885 ==
LOC: ED 10:16 → BSU 16:49 → UNDODISIN 07-30 15:00
PROVIDERS: ADMIT Psychiatry & Neurology Psychiatry; ATTEND Psychiatry & Neurology Psychiatry
PROC: GZHZZZZ Group Psychotherapy (ICD-10-PCS; principal; 2017-07-26)
DX: F33.1 Major depressive disorder, recurrent, moderate (principal); R45.851 Suicidal ideations; I10 Essential (primary) hypertension; Z21 Asymptomatic human immunodeficiency virus [HIV] infection status; M25.431 Effusion, right wrist; F41.9 Anxiety disorder, unspecified; G47.00 Insomnia, unspecified; F43.23 Adjustment disorder with mixed anxiety and depressed mood; Z59.0 Homelessness; Z91.410 Personal history of adult physical and sexual abuse; Z91.5 Personal history of self-harm; Z82.49 Family history of ischemic heart disease and other diseases of the circulatory system
CPT/HCPCS: 36415; 80053; 80061; 80307; 80320; 80329; 81003; 83036; 84443; 85025; 90853; 93005; 96102; 99222; 99231; 99232; 99238; 99282; A9270-GY; G0480